=== PATIENT | female | born 1940 | race African-American/Black ===

== ENCOUNTER 2017-10-08 11:21 | Emergency (ER) | payer MEDICARE ==
[~2017-10-08] VITALS: Ht 154.9 cm; Wt 71.7 kg
[2017-10-08] MEDS ORDERED: CLONIDINE HCL0.1 MG PO (12:06)
[2017-10-08] MEDS ORDERED: METOPROLOL TART25 MG PO (12:07)
[2017-10-08] MEDS ORDERED: ATORVASTATIN CA10 MG PO (12:07)
[2017-10-08] MEDS ORDERED: DIOVAN80 MG PO (12:08)
[2017-10-08 12:45] VITALS: BP 118/60
== END 2017-10-08 12:49 | disposition home or self-care (01) ==
LOC: FSED 11:21
DX: R05 Cough (principal); I10 Essential (primary) hypertension; G30.9 Alzheimer's disease, unspecified; F02.80 Dementia in other diseases classified elsewhere, unspecified severity, without behavioral disturbance, psychotic disturbance, mood disturbance, and anxiety; E78.5 Hyperlipidemia, unspecified
CPT/HCPCS: 71046; 99283